=== PATIENT | male | born 1975 | race Caucasian/White ===

== ENCOUNTER 2018-08-11 16:33 | Emergency (ER) | payer SELFPAY ==
[2018-08-11 16:42] VITALS: BP 181/114; PULSE 87; RESP 18; TEMP 37.1; O2SAT 99; BMI 22.6
[2018-08-11 17:39] LABS: Appearance Urine UA CLEAR; Bilirubin Urine UA NEGATIVE (NEGATIVE); Color Urine UA YELLOW; Glucose Urine UA NEGATIVE (Negative); Ketones Urine UA NEGATIVE (NEGATIVE); Leukocyte Esterase Urine UA NEGATIVE (NEGATIVE); Nitrite Urine UA NEGATIVE (Negative); Occult Blood Urine UA 3+ (Negative); Protein Urine UA TRACE (Negative); Specific Gravity Urine UA >=1.030 (1.000-1.035); Urobilinogen Urine UA 0.2 E.U./dL (0.2); pH Urine UA 5.5 (4.5-8.0)
[2018-08-11 17:55] LABS: Bacteria Urine Few (2-10); Calcium Oxalate Crystals Urine Few; Mucus Urine 1+ (Negative); RBC Urine 30-100/HPF (0-5/HPF); Sperm Urine OCC; WBC Urine 0-1/HPF (0-5/HPF)
[2018-08-11 17:56] LABS: Culture Indicated Urine Cult Not Indicated
--- NOTE | 2018-08-11 18:28 | ED.MALEGU ---
HPI - Male Genitourinary <Jovita Pedroza PA-C - Last Filed: 08/11/18 21:12> General Chief complaint: Urogenital-Male Stated complaint: states blood in semen Time Seen by Provider: 08/11/18 18:04 Source: patient Mode of arrival: ambulatory Limitations: no limitations History of Present Illness HPI Narrative: This healthy 43-year-old male comes in due to 1 episode of bloody ejaculate today. He states that he has been under increased stress but not feeling ill. He denies any pain with ejaculation. He has not had any urinary symptoms such as hematuria, frequency, urgency, dysuria. He denies any discharge or concern for STDs. He has not had any testicular masses, swelling or pain. He has not had any fever, abdominal pelvic pain, vomiting or diarrhea or other new symptoms. He states this has never happened before. He denies any new activities, sports, trauma Related Data Previous Rx's Medication Instructions Recorded amoxicillin 500 mg PO TID #30 tab 12/24/15 Allergies Allergy/AdvReac Type Severity Reaction Status Date / Time No Known Drug Allergies Allergy Verified 08/11/18 16:40 Review of Systems <Jovita Pedroza PA-C - Last Filed: 08/11/18 21:12> Review of Systems ROS Unobtainable: All systems reviewed & are unremarkable except as noted in HPI and below PFSH <Jovita Pedroza PA-C - Last Filed: 08/11/18 21:12> Medical History (Updated 08/11/18 @ 20:07 by Jovita Pedroza PA-C) HTN (hypertension) (Chronic) Surgical History (Updated 08/11/18 @ 18:47 by Jovita Pedroza PA-C) History of repair of anterior cruciate ligament of right knee (Resolved) Status post hernia repair Family History (Updated 01/20/15 @ 00:00 by Conversion Provider) Brother Anxiety Father Hypertension Social History Smoking Status: Current every day smoker Family History (Updated 01/20/15 @ 00:00 by Conversion Provider) Brother Anxiety Father Hypertension Social History Smoking Status: Current every day smoker Exam <MAGDA Gomez Last Filed: 08/11/18 21:12> Narrative Exam Narrative: GENERAL APPEARANCE: Patient sitting comfortably, in no distress. HEENT: PERRL, EOMI NECK: Supple LUNGS: Clear to auscultation bilaterally. HEART: Rate and rhythm regular, normal S1 and S2, no S3 or S4. ABDOMEN: Soft, nontender, nondistended, bowel sounds present x 4 quadrants EXTREMITIES: No edema DERMATOLOGIC: No jaundice or exanthem NEUROLOGIC: Alert and oriented with normal speech and coordination : Normal genitalia, no penile discharge, no testicular masses, lesions or tenderness RECTAL: No visible or palpable masses, prostate non boggy, nontender, stool guaiac negative Initial Vital Signs Initial Vital Signs: Vital Signs Temperature 98.7 F 08/11/18 16:42 Pulse Rate 87 08/11/18 16:42 Respiratory Rate 18 08/11/18 16:42 Blood Pressure 181/114 H 08/11/18 16:42 Pulse Oximetry 99 08/11/18 16:42 <DO Anay Arias Last Filed: 08/12/18 00:24> Initial Vital Signs Initial Vital Signs: Vital Signs Temperature 98.7 F 08/11/18 16:42 Pulse Rate 87 08/11/18 16:42 Respiratory Rate 18 08/11/18 16:42 Blood Pressure 181/114 H 08/11/18 16:42 Pulse Oximetry 99 08/11/18 16:42 Course <MAGDA Gomez Last Filed: 08/11/18 21:12> Orders Ordered: ED Orders 08/11/18 17:35 UA Complete [Urinalysis and Microscopic] Stat Urine Chlamydia Gonorrhea PCR Stat Vital Signs - 8 hr 08/11/18 16:42 08/11/18 20:17 Temperature 98.7 F Pulse Rate 87 69 Respiratory Rate 18 19 Blood Pressure 181/114 H 178/124 H Pulse Oximetry 99 98 <DO Anay Arias Last Filed: 08/12/18 00:24> Orders Ordered: ED Orders 08/11/18 17:35 UA Complete [Urinalysis and Microscopic] Stat Urine Chlamydia Gonorrhea PCR Stat Vital Signs - 8 hr 08/11/18 16:42 08/11/18 20:17 Temperature 98.7 F Pulse Rate 87 69 Respiratory Rate 18 19 Blood Pressure 181/114 H 178/124 H Pulse Oximetry 99 98 MDM - Male Genitourinary <Jovita Pedroza PA-C - Last Filed: 08/11/18 21:12> Lab Data Attestation: I reviewed the patient's lab results. Lab Results 08/11/18 08/11/18 Range/Units 17:35 17:35 Urine Color Yellow Urine Appearance Clear Urine pH 5.5 (4.5-8.0) Ur Specific [place] >=1.030 H (1.000-1.035) Urine Protein Trace H (Negative) Urine Glucose (UA) Negative (Negative) g/dL Urine Ketones Negative (NEGATIVE) Urine Occult Blood 3+ H (Negative) Urine Nitrate Negative (Negative) Urine Bilirubin Negative (NEGATIVE) Urine Urobilinogen 0.2 (0.2) E.U./dL Ur Leukocyte Esterase Negative (NEGATIVE) Urine RBC 30-100/hpf H (0-5/HPF) Urine WBC 0-1/hpf (0-5/HPF) Calcium Oxalate Crystal Few H Urine Bacteria Few (2-10) H (None) Urine Mucus 1+ H (Negative) Urine Sperm Occ Ur Culture Indicated? Cult not indicated Ur Chlamydia DNA (PCR) Not detected N gonorrhoeae DNA (PCR) Not detected <Marisol Nagel DO - Last Filed: 08/12/18 00:24> Lab Data Lab Results 08/11/18 08/11/18 Range/Units 17:35 17:35 Urine Color Yellow Urine Appearance Clear Urine pH 5.5 (4.5-8.0) Ur Specific [place] >=1.030 H (1.000-1.035) Urine Protein Trace H (Negative) Urine Glucose (UA) Negative (Negative) g/dL Urine Ketones Negative (NEGATIVE) Urine Occult Blood 3+ H (Negative) Urine Nitrate Negative (Negative) Urine Bilirubin Negative (NEGATIVE) Urine Urobilinogen 0.2 (0.2) E.U./dL Ur Leukocyte Esterase Negative (NEGATIVE) Urine RBC 30-100/hpf H (0-5/HPF) Urine WBC 0-1/hpf (0-5/HPF) Calcium Oxalate Crystal Few H Urine Bacteria Few (2-10) H (None) Urine Mucus 1+ H (Negative) Urine Sperm Occ Ur Culture Indicated? Cult not indicated Ur Chlamydia DNA (PCR) Not detected N gonorrhoeae DNA (PCR) Not detected Discharge Plan Departure Patient Disposition: Home Clinical Impression: Hematospermia Discharge Date/Time: 08/11/18 20:18 Interventions: ED Discharge Assessment Last Done: 08/11/18 20:17 Activity Restrictions/Additional Instructions: Usually seeing blood in the semen is a benign problem. You did not have any abnormality on your urine testing including gonorrhea and Chlamydia tests, or exam today to explain this. Please follow-up with your PCP for recheck in the next week to determine whether any further testing or referral to Urology is needed. Please follow up on your blood pressure as well as your blood pressure is elevated here today and you should discuss resuming your blood pressure medication. Prescriptions: No Action amoxicillin 500 MG tablet 500 mg PO TID Qty: 30 RF: 0 Referrals: Olivia Douglas DO [Non-Staff] - <Marisol Nagel DO - Last Filed: 08/12/18 00:24> Cosign ED Attending Mahinature Attestation: I was immediately available in the department for consultation. Documentation has been reviewed. I agree with assessment and plan.
[2018-08-11 19:48] LABS: Urine N gonorrhoeae NOT DETECTED
[2018-08-11 19:49] LABS: Urine Chlamydia NOT DETECTED
[2018-08-11 20:17] VITALS: BP 178/124; PULSE 69; RESP 19; O2SAT 98
== END 2018-08-11 20:18 | disposition home or self-care (01) ==
PROVIDERS: Emergency Medicine; Emergency Provider Internal Medicine; Family Provider Family Medicine
DX: R36.1 Hematospermia (principal)
CPT/HCPCS: 81001; 87491; 87591; 99282

== ENCOUNTER 2019-03-05 21:48 | Emergency (ER) | payer OTHER, MEDICAID, SELFPAY ==
[2019-03-05 21:55] VITALS: BP 216/119; PULSE 98; RESP 18; TEMP 36.6; O2SAT 100
--- NOTE | 2019-03-05 21:59 | ED.GENADULT ---
HPI - General Adult General Chief complaint: Toxicology Problem Stated complaint: states od'd then took Narcan Time Seen by Provider: 03/05/19 21:53 Source: patient Mode of arrival: Ambulatory Limitations: no limitations History of Present Illness HPI narrative: Patient is a 43-year-old male who arrives the emergency department by private vehicle after what appeared to be a accidental overdose of heroin. He was with his friends. He states he injected himself in his right arm with heroin this evening. Denies any other substances this evening. He states that his friend that he was with had Narcan with him and the patient was administered a dose of the Narcan. 911 was then called. Initial report was that EMS gave the patient Narcan but this does not appear to be the case. EMS called us in the emergency department to inform us that the patient was going to arrived by private vehicle. Patient had no complaints upon arrival. States that there are ?multiple reasons ?as to why he just started recently using heroin. He states he is only inject himself 1 or 2 times prior to today. Does have a history of hypertension. Has been out of his hypertension medication for ?several weeks? Related Data Previous Rx's Medication Instructions Recorded amoxicillin 500 mg PO TID #30 tab 12/24/15 lisinopril-hydrochlorothiazide 1 tab PO DAILY #90 tab 03/05/19 Allergies Allergy/AdvReac Type Severity Reaction Status Date / Time No Known Drug Allergies Allergy Verified 08/11/18 16:40 Review of Systems Constitutional Constitutional: Denies headache(s) ENT Ears, Nose, Mouth, and Throat: Denies headache(s) Cardiovascular Cardiovascular: Denies chest pain and Denies dyspnea Respiratory Respiratory: Denies dyspnea Gastrointestinal Gastrointestinal: Denies abdominal pain, Denies nausea and Denies vomiting Genitourinary Genitourinary: Denies dysuria Musculoskeletal Musculoskeletal: Denies myalgias and Denies arthralgias Integumentary/Breasts Skin/Breast: Denies lesions and Denies rash Neurologic Neurologic: Denies behavioral changes and Denies headache(s) Psychiatric Psychiatric: Denies behavioral changes Hematologic/Lymphatic Hematologic/Lymphatic: Denies easy bleeding and Denies easy bruising Allergic/Immunologic Allergic/Immunologic: Denies urticaria Patient History Medical History HTN (hypertension) (Chronic) Surgical History (Updated 08/11/18 @ 18:47 by Jovita Pedroza PA-C) History of repair of anterior cruciate ligament of right knee (Resolved) Status post hernia repair Family History (Updated 01/20/15 @ 00:00 by Conversion Provider) Brother Anxiety Father Hypertension Social History Smoking Status: Current every day smoker Smoking Status: Current every day smoker alcohol intake frequency: holidays/special occasions only Substance Use Type: marijuana and heroin Exam Initial Vital Signs Initial Vital Signs: Vital Signs Temperature 97.9 F 03/05/19 21:55 Pulse Rate 98 H 03/05/19 21:55 Respiratory Rate 18 03/05/19 21:55 Blood Pressure 216/119 H 03/05/19 21:55 Pulse Oximetry 100 03/05/19 21:55 Const General: cooperative, comfortable, well developed, well groomed and No acute distress Limitations: mental status not altered HENMT Head: normal to inspection and normocephalic Resp Effort & Inspection: normal respiratory effort Auscultation: clear to auscultation bilaterally Cardio Rate: regular rate Rhythm: regular rhythm Skin Lesions: no lesions Rashes: no rashes Neuro General: alert, awake and oriented x3 Cognition: normal cognition Speech: speech normal Motor: muscle tone normal throughout Extrem General: normal to inspection and capillary refill normal Psych Appearance: grossly normal and well kempt Scores GCS [place] coma scale eye opening: Spontaneous [place] coma scale verbal response: Orientated [place] coma scale motor response: Obey commands [place] coma scale total score: 15 Course Vital Signs Vital signs: Vital Signs - 8 hr 03/05/19 21:55 03/05/19 22:30 Temperature 97.9 F Pulse Rate 98 H 75 Respiratory Rate 18 16 Blood Pressure 216/119 H Blood Pressure [Left Arm] 119/111 H Pulse Oximetry 100 95 Medical Decision Making MDM Narrative Medical decision making narrative: Patient arrived approximately 1 to 1-1/2 hours after injecting himself with heroin. Per the patient's report he was administered Narcan shortly after he injected himself. He stated that his friend told me that it was because he was not breathing well. Patient was observed here in the emergency department for approximately 1 hour without any respiratory depression. He is alert oriented x3. GCS of 15. He does have a ride home. The Narcan has worn off by now and he has not had any return of symptoms. I do not feel that he is going to need a Narcan drip. I will refill his blood pressure medication. He was offered information for help with drug abuse however he states that he already has all of this information. He was told he could return emergency department at any point for new or worsening symptoms Discharge Plan Departure Patient Disposition: Home Clinical Impression: Heroin overdose Qualifiers: Encounter type: initial encounter Injury intent: accidental or unintentional Qualified Code(s): T40.1X1A - Poisoning by heroin, accidental (unintentional), initial encounter Hypertension Qualifiers: Hypertension type: unspecified Qualified Code(s): I10 - Essential (primary) hypertension Instructions: Essential Hypertension, DI for Drug Abuse and Drug Addiction Activity Restrictions/Additional Instructions: Start taking your blood pressure medication as directed. Contact your primary provider for follow-up. No driving while your under the influence of the heroin. Highly recommend that you stop using heroin. You can return to the emergency department for any new or worsening symptoms Prescriptions: New lisinopril-hydrochlorothiazide 20-25 mg tablet 1 tab PO DAILY Qty: 90 RF: 0 No Action amoxicillin 500 MG tablet 500 mg PO TID Qty: 30 RF: 0
[2019-03-05 22:30] VITALS: BP 119/111; PULSE 75; RESP 16; O2SAT 95
--- NOTE | 2019-03-05 22:59 | PC.NURSE ---
Checked on patient again. States he feels like he is feeling good and safe to go home. Pt states he just feels tired but that he is at the one hour observation time and feels like he can go home. Pt does have someone who can give him a ride home. Dr. Pham notified and is in to evaluate patient.
[2019-03-05 23:02] VITALS: BP 189/108; PULSE 113; RESP 22; O2SAT 97
== END 2019-03-05 23:08 | disposition home or self-care (01) ==
LOC: ED 22:06
PROVIDERS: Emergency Provider Emergency Medicine; Family Provider Family Medicine
DX: T40.1X1A Poisoning by heroin, accidental (unintentional), initial encounter (principal); I10 Essential (primary) hypertension
CPT/HCPCS: 99283

== ENCOUNTER 2019-10-26 02:58 | Emergency (ER) | payer OTHER, MEDICAID, SELFPAY ==
--- NOTE | 2019-10-26 03:07 | ED.GENADULT ---
HPI - General Adult General Chief complaint: Urogenital-Male Stated complaint: thinks having kidney stones Time Seen by Provider: 10/26/19 03:00 Source: patient Mode of arrival: Ambulatory Limitations: no limitations History of Present Illness HPI narrative: Patient is a 44-year-old male who reports that he has a history of kidney stones. He states that approximately 4 hours prior to arrival here in the emergency department he had a fairly sudden onset of lower back pain which he states feels very similar to his prior diagnosis of stones. No fevers. Has not tried anything for the symptoms prior to arrival. Was not worse with movement or palpation no urinary symptoms or change in bowel habits. Patient does have history of high blood pressure. States that he is taking his medications. Related Data Previous Rx's Medication Instructions Recorded amoxicillin 500 mg PO TID #30 tab 12/24/15 lisinopril-hydrochlorothiazide 1 tab PO DAILY #90 tab 03/05/19 Allergies Allergy/AdvReac Type Severity Reaction Status Date / Time No Known Drug Allergies Allergy Verified 10/26/19 03:33 Review of Systems Constitutional Constitutional: Denies fever(s) Cardiovascular Cardiovascular: Denies chest pain and Denies dyspnea Respiratory Respiratory: Denies dyspnea Gastrointestinal Gastrointestinal: Denies abdominal pain Musculoskeletal Musculoskeletal: Reports back pain (Lower back) Integumentary/Breasts Skin/Breast: Denies lesions and Denies rash Neurologic Neurologic: Denies behavioral changes Psychiatric Psychiatric: Denies anxiety and Denies behavioral changes Patient History Medical History (Updated 10/26/19 @ 04:31 by Tio Pham DO) HTN (hypertension) (Chronic) Kidney stones (Acute) Surgical History (Updated 08/11/18 @ 18:47 by Jovita Pedroza PA-C) History of repair of anterior cruciate ligament of right knee (Resolved) Status post hernia repair Family History Brother Anxiety Father Hypertension Social History Smoking Status: Current every day smoker Smoking Status: Current every day smoker alcohol intake frequency: holidays/special occasions only Substance Use Type: marijuana and heroin Exam Initial Vital Signs Initial Vital Signs: Vital Signs Temperature 99.0 F 10/26/19 03:12 Pulse Rate 121 H 10/26/19 03:12 Respiratory Rate 20 10/26/19 03:12 Blood Pressure 173/110 H 10/26/19 03:12 Pulse Oximetry 98 10/26/19 03:12 Const General: cooperative Limitations: mental status not altered HENMT Head: normal to inspection and normocephalic Resp Effort & Inspection: normal respiratory effort Cardio Rate: tachycardic GI Inspection: non-distended Palpation: soft Back/Spine/Pelvis Thoracic/Lumbar Spine: No paraspinal tenderness, No thoracic spinal tenderness and No lumbar spinal tenderness Skin Lesions: no lesions Rashes: no rashes Extrem General: normal to inspection Psych Appearance: grossly normal and well kempt Course Orders Ordered: ED Orders 10/26/19 03:02 Ictotest Urine Stat Urine Microscopic Stat 10/26/19 03:18 EKG-12 Lead Stat 10/26/19 03:28 Basic Metabolic Panel Stat Complete Blood Count MAN DIFF Stat Discontinued Medications Lidocaine HCl 6.3 ml/ Sodium (Chloride) 56.3 mls @ 337.8 mls/hr IV NOW ONE Stop: 10/26/19 03:24 Last Infusion: 10/26/19 04:05 Dose: 0 mls/hr Documented by: Infusion: 10/26/19 03:41 Dose: 337.8 mls/hr Documented by: Infusion: 10/26/19 03:36 Dose: 0 mls/hr Documented by: Admin: 10/26/19 03:36 Dose: 337.8 mls/hr Documented by: SEBLE Ketorolac Tromethamine (Toradol) 30 mg IV NOW ONE Stop: 10/26/19 03:11 Last Admin: 10/26/19 03:35 Dose: 30 mg Documented by: SEBLE Vital Signs Vital signs: Vital Signs - 8 hr 10/26/19 03:12 10/26/19 03:30 10/26/19 03:31 Temperature 99.0 F 99.7 F H Pulse Rate 121 H 109 H Respiratory Rate 20 29 H Blood Pressure 173/110 H 133/83 Pulse Oximetry 98 10/26/19 04:00 Temperature Pulse Rate 111 H Respiratory Rate 23 Blood Pressure 164/92 H Pulse Oximetry 98 Medical Decision Making Medical Records Medical records reviewed: Yes I reviewed the patient's medical records. Lab Data Lab results reviewed: Yes I reviewed the patient's lab results. Result diagrams: 10/26/19 03:28 10/26/19 03:28 Labs: Lab Results 10/26/19 10/26/19 10/26/19 Range/Units 03:02 03:28 03:28 WBC 6.9 (4.5-11.0) X10^3/uL RBC 5.47 (4.5-5.9) X10^6/uL Hgb 15.6 (13.5-17.5) g/dL Hct 45.6 (41-53) % MCV 83.3 (80-100) fL MCH 28.6 (26-34) PG MCHC 34.3 (30-36) % RDW 14.4 (11.6-14.8) % Plt Count 322 (150-400) X10^3/uL Total Counted 100 Seg Neutrophils % 37.0 L (38-70) % Band Neutrophils % 23.0 H (3-7) % Lymphocytes % (Manual) 38.0 (25-45) % Monocytes % (Manual) 1.0 L (2-11) % Eosinophils % (Manual) 1.0 L (2-4) % Neutrophils # (Manual) 4140 (7153-0256) /uL Nucleated RBCs 2 H ( - 0) #/Diff RBC Morphology Normal morphology Sodium 136 L (137-145) mmol/L Potassium 3.9 (3.4-5.1) mmol/L Chloride 102 (98-107) mmol/L Carbon Dioxide 25 (22-32) mmol/L BUN 16 (9-20) mg/dL Creatinine 1.62 H (0.66-1.25) mg/dL Estimated GFR 46.7 L (>60) mL/min BUN/Creatinine Ratio 9.9 (6-22) Glucose 111 H (70-100) mg/dL Calcium 8.9 (8.4-10.2) mg/dL Ur Bilirubin Confirm Negative (Negative) Urine RBC None seen (0-5/HPF) Urine WBC None seen (0-5/HPF) Urine Bacteria None seen (None) Ur Culture Indicated? Cult not indicated Urine Dip Bedside Urine Glucose Negative Bedside Urine Bilirubin + 1 Bedside Urine Ketone +/- 5 Urine Specific [place] 1.02 Bedside Urine Occult Blood - Negative Bedside Urine pH 6.0 Bedside Urine Protein +/- 15 Bedside Urine Urobilinogen +/- 1mg Bedside Urine Nitrite - Negative Point of care testing: Urine Dip Bedside Urine Glucose Negative Bedside Urine Bilirubin + 1 Bedside Urine Ketone +/- 5 Urine Specific [place] 1.02 Bedside Urine Occult Blood - Negative Bedside Urine pH 6.0 Bedside Urine Protein +/- 15 Bedside Urine Urobilinogen +/- 1mg Bedside Urine Nitrite - Negative ECG Data Attestation: I personally reviewed and interpreted this ECG as follows: Prior ECG tracings: not available for review Interpretation: Sinus tachycardia Ventricular rate of 116 Normal axis Incomplete right bundle branch block Nonspecific ST T wave changes MDM Narrative Medical decision making narrative: Despite not having any blood in his urine today patient states that his symptoms that he presents with feel exactly like his prior diagnosis of kidney stones. He has no signs of urinary tract infection. Reports also complete resolution of symptoms after Toradol and IV lidocaine. Was tachycardic upon arrival. The this improved slightly however was still slightly tachycardic around the time of discharge. Also has a creatinine of 1.6. Had a long discussion with him regarding his symptoms. We did discuss CT scans him with the would offer as far as diagnosis verses holding on a CT scan. Patient was adamant that his presenting symptoms today feel just like prior kidney stones. I feel that given his presentation and his stated history that holding on CT scan avoiding the radiation is prudent this time. Especially in the setting of resolution of symptoms. Patient was given strict return precautions and follow-up instructions. He expressed understanding and agreement. Discharge Plan Departure Patient Disposition: Home Clinical Impression: Lower back pain Qualifiers: Chronicity: acute Back pain laterality: bilateral Sciatica presence: without sciatica Qualified Code(s): M54.5 - Low back pain Instructions: DI for Kidney Stones Activity Restrictions/Additional Instructions: Continue all of your medications as directed. Contact your primary provider for follow-up. Return to the emergency department for any new or worsening symptoms Prescriptions: No Action amoxicillin 500 MG tablet 500 mg PO TID Qty: 30 RF: 0 lisinopril-hydrochlorothiazide 20-25 mg tablet 1 tab PO DAILY Qty: 90 RF: 0
[2019-10-26 03:12] VITALS: BP 173/110; PULSE 121; RESP 20; TEMP 37.2; O2SAT 98; BMI 25.0
[2019-10-26 03:22] LABS: Bacteria Urine None Seen; RBC Urine None Seen (0-5/HPF); WBC Urine None Seen (0-5/HPF)
[2019-10-26 03:30] VITALS: BP 133/83; TEMP 37.6
[2019-10-26 03:31] VITALS: PULSE 109; RESP 29
[2019-10-26] MEDS: KETOROLAC 60 MG/2 ML VIAL 30 MG IV (03:35)
[2019-10-26] MEDS: LIDOCAINE 2% 6.3 ML in SODIUM CHLORIDE 0.9% 50 ML 337.8 ML IV (03:36)
[2019-10-26 03:39] LABS: Hematocrit 45.6 % (41-53); Hemoglobin 15.6 g/dL (13.5-17.5); Mean Corpuscular HGB Conc 34.3 % (30-36); Mean Corpuscular Hemoglobin 28.6 PG (26-34); Mean Corpuscular Volume 83.3 fL (80-100); Platelet Count 322 X10^3/uL (150-400); Red Blood Cell Count 5.47 X10^6/uL (4.5-5.9); Red Cell Distribution Width 14.4 % (11.6-14.8); White Blood Cell Count 6.9 X10^3/uL (4.5-11.0)
[2019-10-26 03:46] LABS: BUN Creatinine Ratio 9.9 (6-22); Blood Urea Nitrogen 16 mg/dL (9-20); Calcium 8.9 mg/dL (8.4-10.2); Carbon Dioxide 25 mmol/L (22-32); Chloride 102 mmol/L (98-107); Estimated Glomerular Filt Rate 46.7 mL/min (>60); Glucose 111 mg/dL (70-100); Potassium 3.9 mmol/L (3.4-5.1); Sodium 136 mmol/L (137-145)
[2019-10-26 03:47] LABS: HEMOLYSIS 58 (0-50)
[2019-10-26 03:50] LABS: Culture Indicated Urine Cult Not Indicated; Ictotest Urine Negative (Negative)
[2019-10-26 04:00] VITALS: BP 164/92; PULSE 111; RESP 23; O2SAT 98
[2019-10-26 04:23] LABS: Neutrophils Absolute Manual 4140 /uL (3000-5900); Total Cells Counted 100
[2019-10-26 04:24] LABS: Nucleated Red Blood Cells 2 #/Diff; RBC Morphology Normal Morphology
[2019-10-26 04:30] VITALS: BP 138/71; PULSE 109; RESP 20; O2SAT 97
== END 2019-10-26 04:39 | disposition home or self-care (01) ==
PROVIDERS: Emergency Provider Emergency Medicine; Family Provider Family Medicine
DX: M54.5 Low back pain (principal); R00.0 Tachycardia, unspecified; Z87.442 Personal history of urinary calculi
CPT/HCPCS: 80048; 81003; 81015; 85025; 93005; 96365; 96375; 99283; 99284; J1885